=== PATIENT | male | born 1975 | race Caucasian/White ===

== ENCOUNTER 2017-08-19 22:17 | Emergency (ER) | payer SELFPAY ==
--- NOTE | 2017-08-19 23:29 | XRay Report ---
FINAL REPORT PROCEDURE: XR HAND 3+V RT TECHNIQUE: Right hand radiographs, AP, lateral, and oblique views. CPT 93875 HISTORY: hand injury COMPARISON: No prior studies are available for comparison. FINDINGS: There is mild deformity of the shaft of the 5th metacarpal and proximal end of the 4th metacarpal.. The appearance suggest an old healed fractures. No acute fractures are identified. 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 No other abnormalities are identified. Bone density appears normal. No radiopaque foreign bodies are identified. IMPRESSION: Old healed fractures suspected. No acute abnormalities are identified..
[2017-08-20] MEDS ORDERED: MOTRIN ONE (01:08)
[2017-08-20] MEDS ORDERED: MOTRIN PO ONE (01:24)
[2017-08-20] MEDS ORDERED: XYLOCAINE 2% INFILTRATI ONE ×2 (02:30→02:32)
[2017-08-20] MEDS ORDERED: BOOSTRIX IM ONE (02:32)
--- NOTE | 2017-08-20 02:37 | Emergency Department Report ---
- General Chief Complaint: Laceration/Recheck/Suture Stated Complaint: CUT BETWEEN THUMB Time Seen by Provider: 08/20/17 02:33 Source: patient Mode of arrival: Ambulatory Limitations: No Limitations - History of Present Illness Initial Comments: 42-year-old -[place] male comes to the emergency room from sustaining a laceration while at work. Patient reports that he had cut his hand on some rebar. Patient denies any past medical history currently takes no medications and has no known drug allergies. Patient is unsure of his tetanus status. Extremity Location: Right: Hand (the base of the thumb) Place: work Patient Tetanus UTD: No Context: sharp object use Associated Symptoms: pain Treatments Prior to Arrival: bandage - Related Data Previous Rx's Medication Instructions Recorded Last Taken Type Cephalexin [Keflex] 500 mg PO BID #20 capsule 08/20/17 Unknown Rx Ibuprofen [Motrin 800 MG tab] 800 mg PO Q8HR PRN #30 tablet 08/20/17 Unknown Rx Allergies Allergy/AdvReac Type Severity Reaction Status Date / Time No Known Allergies Allergy Verified 08/19/17 22:34 ED Review of Systems ROS: Stated complaint: CUT BETWEEN THUMB Other details as noted in HPI Comment: All other systems reviewed and negative Skin: other (cut to right base of thumb) ED Past Medical Hx - Past Medical History Previous Medical History?: No - Surgical History Past Surgical History?: No - Social History Smoking Status: Current Every Day Smoker Substance Use Type: Alcohol - Medications Home Medications: Home Medications Medication Instructions Recorded Confirmed Last Taken Type Cephalexin [Keflex] 500 mg PO BID #20 capsule 08/20/17 Unknown Rx Ibuprofen [Motrin 800 MG tab] 800 mg PO Q8HR PRN #30 tablet 08/20/17 Unknown Rx ED Physical Exam - General Limitations: No Limitations General appearance: alert, in no apparent distress - Neurological Exam Neurological exam: Present: alert, oriented X3 - Psychiatric Psychiatric exam: Present: normal affect, normal mood - Skin Skin exam: Present: other (3 cm laceration to the right base of thumb) ED Course Vital Signs 08/19/17 08/20/17 08/20/17 22:34 01:25 02:25 Temperature 97.8 F Pulse Rate 78 Respiratory 16 18 18 Rate Blood Pressure 127/83 O2 Sat by Pulse 98 Oximetry - Laceration /Wound Repair Right Finger Wound Location: upper extremity Wound's Depth, Shape: linear Irrigated w/ Saline (ccs): 500 Betadine Prep?: Yes Anesthesia: 1% Lidocaine Volume Anesthetic (ccs): 7 Wound Debrided: minimal Wound Repaired With: sutures Suture Size/Type: 5:0 Number of Sutures: 8 Sterile Dressing Applied?: Yes Progress: Patient tolerated procedure well ED Medical Decision Making - Radiology Data Radiology results: report reviewed, image reviewed FINAL REPORT PROCEDURE: XR HAND 3+V RT TECHNIQUE: Right hand radiographs, AP, lateral, and oblique views. CPT 89804 HISTORY: hand injury COMPARISON: No prior studies are available for comparison. FINDINGS: There is mild deformity of the shaft of the 5th metacarpal and proximal end of the 4th metacarpal.. The appearance suggest an old healed fractures. No acute fractures are identified. 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 No other abnormalities are identified. Bone density appears normal. No radiopaque foreign bodies are identified. IMPRESSION: Old healed fractures suspected. No acute abnormalities are identified.. Transcribed By: DFN Dictated By: ANEL HAAS MD Electronically Authenticated By: ANEL HAAS MD Signed Date/Time: 08/19/172322 DD/ 22 TD/TT: 08/19/172322 - Medical Decision Making Patient's been evaluated by this provider fast track. Discussed the patient will need to suture his thumb up. Patient has been given Tylenol and ibuprofen during his ER visit. Critical care attestation.: If time is entered above; I have spent that time in minutes in the direct care of this critically ill patient, excluding procedure time. ED Disposition Clinical Impression: Laceration of thumb Qualifiers: Encounter type: initial encounter Damage to nail status: without damage Foreign body presence: without foreign body Laterality: right Qualified Code(s) : S61.011A - Laceration without foreign body of right thumb without damage to nail, initial encounter Disposition: TO HOME OR SELFCARE Is pt being admited?: No Does the pt Need Aspirin: No Condition: Stable Instructions: Suture Care (ED), Laceration (ED) Additional Instructions: Please return to the emergency room in 7-10 days for suture removal. Please complete antibiotics as prescribed. Take Motrin as needed for pain. Prescriptions: Cephalexin [Keflex] 500 mg PO BID #20 capsule Ibuprofen [Motrin 800 MG tab] 800 mg PO Q8HR PRN #30 tablet PRN Reason: Pain Referrals: PRIMARY CARE, [Primary Care Provider] - 3-5 Days [facility] [Provider Group] - 3-5 Days Forms: Work/School Release Form(ED)
[2017-08-20 04:05] VITALS: BP 129/80
== END 2017-08-20 03:49 | disposition home or self-care (01) ==
LOC: ED 22:17
DX: S61.011A Laceration without foreign body of right thumb without damage to nail, initial encounter (principal); F17.200 Nicotine dependence, unspecified, uncomplicated; W26.8XXA Contact with other sharp object(s), not elsewhere classified, initial encounter; Y93.89 Activity, other specified; Y92.89 Other specified places as the place of occurrence of the external cause; Y99.8 Other external cause status
CPT/HCPCS: 90471; 90715